=== PATIENT | female | born 1965 | race Caucasian/White ===

== ENCOUNTER 2021-10-23 12:45 | Emergency (ER) | payer OTHER, SELFPAY ==
[~2021-10-23] VITALS: Ht 160 cm; Wt 79.4 kg
[2021-10-23 12:57] VITALS: BP 109/90
--- NOTE | 2021-10-23 13:04 | NUR ---
TENT1
--- NOTE | 2021-10-23 13:05 | NUR ---
C/O COUGH X 1 MONTH AND C/O SOB X TODAY. O2SAT 97% AT THIS TIME. COVID TESTED + 5 DAYS AGO. SEEN AT [facility] 5 DAYS AGO & GOT MAZITHOMYCIN & ALBUTEROL . PMH: ASTHMA
[2021-10-23] MEDS ORDERED: IBUP-2213 PO (14:50)
[2021-10-23 15:05] VITALS: BP 111/89
== END 2021-10-23 15:04 | disposition home or self-care (01) ==
LOC: MED 12:45
DX: U07.1 COVID-19 (principal); J12.82 Pneumonia due to coronavirus disease 2019
CPT/HCPCS: 71045; 99283